=== PATIENT | male | born 1975 | race Caucasian/White ===

== ENCOUNTER → 2017-02-05 | Outpatient (CLI) | payer OTHER ==
--- NOTE | 2017-02-05 16:00 | RAD ---
Right knee radiographs History: Diffuse right knee pain for 1.5 weeks. Comparison: None. Findings: AP and lateral views of the right knee. Evaluation for acute traumatic injury is limited by lack of third view. No acute fracture or dislocation is identified. No joint effusion is seen. No significant degeneration is appreciated. Impression: Unremarkable right knee radiographs.
== END | disposition home or self-care (01) ==
LOC: DXRADRC 08:42
PROVIDERS: ATTEND Physician Assistant
DX: M25.561 Pain in right knee (principal)
CPT/HCPCS: 73560

== ENCOUNTER → 2019-02-17 | Outpatient (CLI) | payer OTHER ==
--- NOTE | 2019-02-17 14:15 | RAD ---
EXAM: AP, lateral and lumbosacral spot views of the lumbar spine DATE: 02/17/2019 12:00 AM INDICATION: Low back pain COMPARISON: No Prior FINDINGS: 5 nonrib-bearing lumbar-type vertebral bodies. Vertebral body heights are preserved. Intervertebral disc heights are preserved. Mild to moderate degenerative changes at L3-4 and below. Vascular calcifications are seen. Moderate to large volume colonic stool content is seen. IMPRESSION: 1. Negative acute fracture or subluxation. Electronically signed by: Conner Langston MD (02/17/2019 2:12 PM) [id number]
== END | disposition home or self-care (01) ==
LOC: PMG 11:22
PROVIDERS: ATTEND Registered Nurse
DX: M47.816 Spondylosis without myelopathy or radiculopathy, lumbar region (principal)
CPT/HCPCS: 72100

== ENCOUNTER → 2022-01-27 | Outpatient (CLI) | payer OTHER ==
--- NOTE | 2022-01-27 12:27 | RAD ---
Right lower extremity venous duplex study 01/27/2022 12:25 PM Clinical History: Right leg pain x3 weeks.: Technique: Using a combination of real time ultrasound imaging and color-flow and pulse Doppler imagi ng techniques, including spectral analysis, graded compression and augmentation, duplex evaluation of the deep venous system of the right lower extremity was performed. Multiple images were obtained. Findings: There is no sonographic evidence of deep venous thrombosis involving the visualized deep ve nous structures of the right lower extremity Impression: No evidence of deep venous thrombosis involving the right lower extremity Electronically signed by: Leonardo Boyce MD (01/27/2022 12:25 PM) [id number]
== END ==
LOC: US 10:17
PROVIDERS: ATTEND Physician Assistant Medical
DX: I87.1 Compression of vein (principal); M79.604 Pain in right leg
CPT/HCPCS: 93971